=== PATIENT | male | born 1990 | race Caucasian/White ===

== ENCOUNTER 2019-02-20 13:30 | Outpatient (AMBR) | payer MEDICAID, SELFPAY ==
--- NOTE | 2019-01-27 19:27 | PTNOTE_ITS ---
PT Outpatient Daily Note Date of Service: January 27, 2019 OP Daily Note Visit Reasons: [facility] Outpatient Physical Therapy Treatment Date: 01/27/19 Subjective: The ankle is hurting more today, not sure why Objective: See F/S for therex Assessment: Decreased exercise tolerance today due to increased pain. Pt has pain in the peroneal mm's with foot inversion, possibly peronial tendiopathy. Plan: Continue per POC Length of Time (minutes) of Treatment: 30 Minutes Office Procedures PT Procedures PT Date of Service: 01/27/19 Therapeutic Exercise 15 minutes: Yes Manual [employer] Principal 15 minutes: Yes
--- NOTE | 2019-01-29 18:51 | PTNOTE_ITS ---
PT Outpatient Daily Note Date of Service: January 29, 2019 OP Daily Note Visit Reasons: [facility] Outpatient Physical Therapy Treatment Date: 01/29/19 Subjective: He has noticed more ankle movement since starting therapy. Working with brace a nd Objective: See F/S for therex Assessment: Improved forefoot PROM with less guarding today. Stiffness with likely adaptive shortening of myofascia on lateral aspect of ankle/foot. Pt has pain in the peroneal mm's with foot inversion, possibly peronial tendiopathy. Plan: Continue per POC Length of Time (minutes) of Treatment: 30 Minutes Office Procedures PT Procedures PT Date of Service: 01/27/19 Therapeutic Exercise 15 minutes: Yes Manual Sheet Metal Shop Supervisor 15 minutes: Yes PT Procedures PT Date of Service: 01/29/19 Therapeutic Exercise 15 minutes: Yes Manual Sheet Metal Shop Supervisor 15 minutes: Yes
--- NOTE | 2019-02-04 18:14 | PT.ODAYNRPT ---
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 Objective: See F/S for therex MT: CFM R peroneal tendons and lateral aspect of foot x10' with graston Assessment: Improved forefoot PROM with less guarding today. Stiffness with likely adaptive shortening of myofascia on lateral aspect of ankle/foot. Pt has pain in the peroneal mm's with foot inversion, possibly peroneal tendiopathy. Plan: Continue per POC Length of Time (minutes) of Treatment: 30 Minutes Office Procedures PT Procedures PT Date of Service: 01/27/19 Therapeutic Exercise 15 minutes: Yes Manual Manager Commercial Sales 15 minutes: Yes PT Procedures PT Date of Service: 01/29/19 Therapeutic Exercise 15 minutes: Yes Manual Manager Commercial Sales 15 minutes: Yes PT Procedures PT Date of Service: 02/04/19 Therapeutic Exercise 15 minutes: Yes Manual Manager Commercial Sales 15 minutes: Yes
--- NOTE | 2019-02-06 15:47 | PT.ODAYNRPT ---
PT Outpatient Daily Note Date of Service: February 06, 2019 OP Daily Note Visit Reasons: [facility] ankle Outpatient Physical Therapy Treatment Date: 02/06/19 Subjective: pt states he is still being active and working on side jobs. pt had good endurance as he does not have to rest in between work hours. pt continues to wear the soft brace on the ankle. Objective: see flow sheet. Assessment: added balance exercise as pt has some difficulty with uneven terrain. balance on the wobble board in both directions (forward and side to side). pt had uneven balance during IV/EV than DF/PF. pt did use the rail at times to avoid falls. added PF with thera band and noted pt has very limited ROM with PF. cued pt to keep knees straight and only move the ankle. Plan: continue POC per PT. Length of Time (minutes) of Treatment: 30 Minutes Office Procedures PT Procedures PT Date of Service: 01/27/19 Therapeutic Exercise 15 minutes: Yes Manual Adhesion Tester 15 minutes: Yes PT Procedures PT Date of Service: 01/29/19 Therapeutic Exercise 15 minutes: Yes Manual Adhesion Tester 15 minutes: Yes PT Procedures PT Date of Service: 02/04/19 Therapeutic Exercise 15 minutes: Yes Manual Adhesion Tester 15 minutes: Yes PT Procedures PT Date of Service: 02/06/19 Therapeutic Exercise 30 minutes: Yes
--- NOTE | 2019-02-06 15:53 | PTNOTE_ITS ---
PT Outpatient Daily Note Date of Service: February 06, 2019 OP Daily Note Visit Reasons: [facility] ankle Outpatient Physical Therapy Treatment Date: 02/06/19 Subjective: pt states he is still being active and working on side jobs. pt had good endurance as he does not have to rest in between work hours. pt continues to wear the soft brace on the ankle. Objective: see flow sheet. Assessment: added balance exercise as pt has some difficulty with uneven terrain. balance on the wobble board in both directions (forward and side to side). pt had uneven balance during IV/EV than DF/PF. pt did use the rail at times to avoid falls. added PF with thera band and noted pt has very limited ROM with PF. cued pt to keep knees straight and only move the ankle. Plan: continue POC per PT. Length of Time (minutes) of Treatment: 30 Minutes Office Procedures PT Procedures PT Date of Service: 01/27/19 Therapeutic Exercise 15 minutes: Yes Manual Instructor Decorating 15 minutes: Yes PT Procedures PT Date of Service: 01/29/19 Therapeutic Exercise 15 minutes: Yes Manual Instructor Decorating 15 minutes: Yes PT Procedures PT Date of Service: 02/04/19 Therapeutic Exercise 15 minutes: Yes Manual Instructor Decorating 15 minutes: Yes PT Procedures PT Date of Service: 02/06/19 Therapeutic Exercise 30 minutes: Yes
--- NOTE | 2019-02-11 16:25 | PTNOTE_ITS ---
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 Objective: See F/S for therex MT: CFM R peroneal tendons and lateral aspect of foot x10' with graston Assessment: Improved forefoot PROM with less guarding today. Stiffness with likely adaptive shortening of myofascia on lateral aspect of ankle/foot. Pt has pain in the peroneal mm's with foot inversion, possibly peroneal tendiopathy. Plan: Continue per POC Length of Time (minutes) of Treatment: 30 Minutes Office Procedures PT Procedures PT Date of Service: 01/27/19 Therapeutic Exercise 15 minutes: Yes Manual [place] Administrator 15 minutes: Yes PT Procedures PT Date of Service: 01/29/19 Therapeutic Exercise 15 minutes: Yes Manual [place] Administrator 15 minutes: Yes PT Procedures PT Date of Service: 02/04/19 Therapeutic Exercise 15 minutes: Yes Manual [place] Administrator 15 minutes: Yes PT Procedures PT Date of Service: 02/06/19 Therapeutic Exercise 30 minutes: Yes PT Procedures PT Date of Service: 02/11/19 Therapeutic Exercise 15 minutes: Yes Manual [place] Administrator 15 minutes: Yes
--- NOTE | 2019-02-12 17:27 | PT.ODAYNRPT ---
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 Objective: See F/S for therex MT: CFM R peroneal tendons and lateral aspect of foot, manual forefoot mobilizations x10' Assessment: Improved forefoot PROM with less guarding today. Stiffness with likely adaptive shortening of myofascia on lateral aspect of ankle/foot. He is unable to jog due to pain. Pt has pain in the peroneal mm's with foot inversion with posterior TCJ pain. Pt would benefit from continued visits to complete POC and to meet goals, especially jogging goals. Plan: REquest additional visits x7 Length of Time (minutes) of Treatment: 30 Minutes Office Procedures PT Procedures PT Date of Service: 01/27/19 Therapeutic Exercise 15 minutes: Yes Manual Assembler Cards And Announcements 15 minutes: Yes PT Procedures PT Date of Service: 02/12/19 Therapeutic Exercise 15 minutes: Yes Manual Assembler Cards And Announcements 15 minutes: Yes PT Procedures PT Date of Service: 01/29/19 Therapeutic Exercise 15 minutes: Yes Manual Assembler Cards And Announcements 15 minutes: Yes PT Procedures PT Date of Service: 02/04/19 Therapeutic Exercise 15 minutes: Yes Manual Assembler Cards And Announcements 15 minutes: Yes PT Procedures PT Date of Service: 02/06/19 Therapeutic Exercise 30 minutes: Yes PT Procedures PT Date of Service: 02/11/19 Therapeutic Exercise 15 minutes: Yes Manual Assembler Cards And Announcements 15 minutes: Yes
--- NOTE | 2019-02-20 14:28 | PT.ODAYNRPT ---
PT Outpatient Daily Note Date of Service: February 20, 2019 OP Daily Note Visit Reasons: [facility] ankle Outpatient Physical Therapy Treatment Date: 02/20/19 Subjective: pt reported twisting his ankle as he got out if his truck sarah fast to get his daughter off the street. this happened this past saturday. pt has had an increase in pain since then. he denied swelling and did not use ice pack at home. he had karin 2 days without his brace with no pain until the incident. Objective: see flow sheet. Assessment: pt had just got off work and was on break. pt was ambulating with antaglic gait pattern. he completed a few exercises but was having difficulty with the balance exercises. if pt moves his ankle into inversion it increase his pain. stopped the exercises and applied e-stim and cold pack to the R ankle for a few mins. pt tolerated well with no complaints. advised pt to continue using the cold pack at home. Plan: continue POC per PT. Length of Time (minutes) of Treatment: 30 Minutes Office Procedures PT Procedures PT Date of Service: 01/27/19 Therapeutic Exercise 15 minutes: Yes Manual Sawmill Equipment Operator 15 minutes: Yes PT Procedures PT Date of Service: 02/12/19 Therapeutic Exercise 15 minutes: Yes Manual Sawmill Equipment Operator 15 minutes: Yes PT Procedures PT Date of Service: 02/20/19 OP Electrical Stimul Unattended: Yes Therapeutic Exercise 15 minutes: Yes PT Procedures PT Date of Service: 01/29/19 Therapeutic Exercise 15 minutes: Yes Manual Sawmill Equipment Operator 15 minutes: Yes PT Procedures PT Date of Service: 02/04/19 Therapeutic Exercise 15 minutes: Yes Manual Sawmill Equipment Operator 15 minutes: Yes PT Procedures PT Date of Service: 02/06/19 Therapeutic Exercise 30 minutes: Yes PT Procedures PT Date of Service: 02/11/19 Therapeutic Exercise 15 minutes: Yes Manual Sawmill Equipment Operator 15 minutes: Yes
== END 2019-02-22 23:59 | disposition home or self-care (01) ==
PROVIDERS: Visit Provider Orthopaedic Surgery
DX: S93.401D Sprain of unspecified ligament of right ankle, subsequent encounter (principal); M25.571 Pain in right ankle and joints of right foot; R26.2 Difficulty in walking, not elsewhere classified; V69.9XXD Occupant (driver) (passenger) of heavy transport vehicle injured in unspecified traffic accident, subsequent encounter; I10 Essential (primary) hypertension
CPT/HCPCS: 97014; 97110; 97140; G0283

== ENCOUNTER → 2025-10-11 | Outpatient (CLI) | payer BC, SELFPAY ==
[2025-10-11 09:07] LABS: Collection Type, Urine Clean Catch; Squamous Epithelial Cell,Urine 0 /hpf (0-5)
[2025-10-11 09:43] LABS: Basophils # (Auto) 0.0 Thou/mm3 (0.0-0.2); Basophils % (Auto) 1 % (0-2.5); Eosinophils # (Auto) 0.1 Thou/mm3 (0.0-0.5); Eosinophils % (Auto) 2 % (0-10); Hematocrit 45.6 % (41.0-53.0); Hemoglobin 15.5 g/dL (13.5-16.0); Immature Granulocytes Auto 0.01 Thou/mm3 (0.00-0.00); Lymphocytes # (Auto) 2.3 Thou/mm3 (1.0-4.8); Lymphocytes % (Auto) 35 % (10-50); Mean Corpuscular HGB Conc 34.0 g/dl (31.0-37.0); Mean Corpuscular Hemoglobin 29.9 pg (25.0-35.0); Mean Corpuscular Volume 88 fL (80-100); Monocytes # (Auto) 0.5 Thou/mm3 (0.0-0.8); Monocytes % (Auto) 8 % (0-12); Neutrophils # (Auto) 3.6 Thou/mm3 (1.8-7.7); Neutrophils % (Auto) 55 % (37-80); Nucleated Red Blood Cell # 0.00 Thou/mm3 (0.00-0.00); Nucleated Red Blood Cell % 0 /100 WBC (0); Platelet Count 250 Thou/mm3 (140-440); RDW Standard Deviation 42.8 fL (35.1-43.9); Red Blood Count 5.18 Miln/mm3 (4.50-5.90); White Blood Count 6.6 Thou/mm3 (3.8-10.6)
[2025-10-11 09:44] LABS: Bilirubin,Urine Negative (Negative); Blood,Urine Negative (Negative); Clarity,Urine Clear (Clear/Hazy); Color,Urine Lt-Yellow (Lt Yel-Yel); Culture Indicated,Urine Not Indicated; Glucose, Urine Negative (Negative); Ketones,Urine Negative (Negative); Leukocyte Esterase,Urine Negative (Negative); Nitrite,Urine Negative (Negative); PH,Urine 6.0 (5.0-7.0); Protein,Urine Negative (Neg - Trace); RBC,Urine < 1 /hpf (0-3); Specific Gravity,Urine 1.020 (1.001-1.035); Urobilinogen,Urine Negative mg/dL (0.0-1.0); WBC,Urine < 1 /hpf (0-5)
[2025-10-11 09:54] LABS: Vitamin B12 765 pg/mL (211-911); Vitamin D 25 Hydroxy Total 22.3 ng/mL (7.3-40.2)
[2025-10-11 09:55] LABS: Alanine Aminotransferase 26 U/L (10-49); Albumin, Serum 4.7 gm/dL (3.5-5.0); Albumin/Globulin Ratio 2.6 (1.2-2.2); Alkaline Phosphatase 69 U/L (46-116); Anion Gap 9 (7-16); Aspartate Amino Transferase 29 U/L (0-34); BUN/Creatinine Ratio 13 Ratio (12-20); Bilirubin,Total 0.4 mg/dL (0.3-1.2); Blood Urea Nitrogen 13 mg/dL (9-23); Calcium 9.5 mg/dL (8.3-10.6); Calcium (Corrected) 9.5 mg/dL (8.5-10.1); Carbon Dioxide 27.5 mMol/L (20.0-31.0); Cardiac Risk Estimate 5.3 RATIO (4.0-6.7); Chloride 107 mMol/L (98-107); Cholesterol 185 mg/dL (132-200); Creatinine (Component) 1.0 mg/dL (0.6-1.3); Globulin 1.8 gm/dL (2.3-3.5); Glucose 95 mg/dL (74-106); HDL Cholesterol 35 mg/dL (40-60); LDL Cholesterol,Calculated 115 mg/dL (0-130); Osmolality,Calculated 285 (275-295); Potassium 4.5 mMol/L (3.4-5.1); Sodium 143 mMol/L (136-145); Thyroid Stimulating Hormone 1.12 uIU/mL (0.55-4.78); Total Protein 6.5 gm/dL (5.7-8.2); Triglycerides 174 mg/dL (30-150); eGFR > 60 See Note
[2025-10-11 10:00] LABS: Glucose Estimated Average 103 mg/dL (80-131); Hemoglobin A1C 5.2 % Hgb (4.8-6.0)
[2025-10-18 06:49] LABS: Testosterone, Free,Dialysis 130.1 pg/mL (35.0-155.0); Testosterone, Total, Dialysis 657 ng/dL (250-1100)
== END | disposition home or self-care (01) ==
PROVIDERS: PCP Family Medicine; Referring Provider Nurse Practitioner Family; Visit Provider Nurse Practitioner Family
DX: Z00.00 Encounter for general adult medical examination without abnormal findings (principal); R53.83 Other fatigue; R63.5 Abnormal weight gain
CPT/HCPCS: 36415; 80053; 80061; 81001; 82306; 82607; 83036; 84402; 84403; 84443; 85025